=== PATIENT | female | born 1985 | race African-American/Black ===

== ENCOUNTER → 2021-05-16 12:20 | Outpatient (CLI) | payer OTHER, MEDICAID, SELFPAY ==
--- NOTE | 2021-05-16 12:22 | DI.US.S_ITS ---
PROCEDURE: US OB <= 14 WK FETUS ADD GEST INDICATIONS: INITIAL DATING VIABILITY OUTSIDE/PRIOR DATING DATA: Last menstrual period (LMP): February 14, 2021 . LMP-based estimated date of delivery (GLADIS): November 21, 2021 . First dating scan (date and location): [facility]; May 16, 2021 . Estimated date of delivery (GLADIS) from first dating scan: November 21, 2021 . TECHNIQUE: Real-time scanning was performed of the fetuses and maternal pelvic organs, with image documentation. Endovaginal scanning: Performed for better visualization of the fetuses and maternal adnexal structures. COMPARISON: None. FINDINGS: General: An intrauterine diamniotic dichorionic twin is present, as evidenced by separate placental sites and/or intervening membrane thickness of greater than 2 mm at this early gestational age. Embryo A: Twin [place]-rump length measures 6.5 cm, compatible with a 12 week, 6 day gestation Heart rate: 152 beats per minute. Placenta position: Anterior, possibly marginal. Embryo B: Twin [place]-rump length measures 6.8 cm, compatible with a 13 week gestation. Heart rate: 155 beats per minute. Placenta position: Posterior. Measurement variability in dating: +/- 4 weeks by LMP, +/- 7 days by mean sac diameter (use before 6 weeks gestation if crown-rump length unable to be measured), +/- 5 days by crown-rump length (up to 8 weeks 6 days gestation), +/- 7 days by crown-rump length (up to 13 weeks 6 days gestation). Maternal organs: Ovaries are not well demonstrated . The cervical length measures 5.3 cm. Ovoid, hypoechoic lesion in the anterior uterus, measuring 2 x 1.7 x 2.32 cm, compatible with a fibroid. A 1.1 x 0.8 x 1.2 cm echogenic focus is seen near the margin of the anterior placenta, which is nonspecific but may reflect a small hemorrhage. IMPRESSION: 1. Single live intrauterine gestation as detailed above. 2. Anterior position of placenta A, partially marginal with small focus of hemorrhage. Dictated by: Arnol Chilel M.D. on 05/16/2021 at 15:02 Approved by: Arnol Chilel M.D. on 05/16/2021 at 15:14
[2021-05-16 14:33] LABS: Add Manual Diff / Slide Review NO; Basophils Absolute Auto 0 /uL (0-100); Basophils Percent Auto 0.6 % (0-2); Eosinophils Absolute Auto 100 /uL (0-450); Eosinophils Percent Auto 1.6 % (2-4); Hematocrit 41.6 % (36-46); Hemoglobin 14.2 g/dL (12.0-16.0); Lymphocytes Absolute Auto 1500 /uL (1100-4500); Lymphocytes Percent Auto 23.6 % (25-40); Mean Corpuscular HGB Conc 34.2 % (30-36); Mean Corpuscular Volume 87.9 fL (80-100); Monocytes Absolute Auto 700 /uL (0-900); Monocytes Percent Auto 10.8 % (3-14); Neutrophils Absolute Auto 3900 /uL (1500-7000); Neutrophils Percent Auto 63.4 % (50-75); Platelet Count 300 X10^3/uL (150-400); Red Blood Cell Count 4.73 X10^6/uL (4.0-5.2); Red Cell Distribution Width 13.8 % (11.6-14.8); White Blood Cell Count 6.2 X10^3/uL (4.5-11.0)
[2021-05-16 14:34] LABS: Appearance Urine UA CLEAR; Bilirubin Urine UA NEGATIVE (NEGATIVE); Color Urine UA YELLOW; Glucose Urine UA NEGATIVE (Negative); Ketones Urine UA NEGATIVE (NEGATIVE); Leukocyte Esterase Urine UA NEGATIVE (NEGATIVE); Nitrite Urine UA NEGATIVE (Negative); Occult Blood Urine UA NEGATIVE (Negative); Protein Urine UA NEGATIVE (Negative); Specific Gravity Urine UA <=1.005 (1.000-1.035); Urobilinogen Urine UA 0.2 E.U./dL (0.2)
[2021-05-16 15:30] LABS: Hepatitis B Surface Antigen NEGATIVE s/c (NEGATIVE)
[2021-05-16 15:47] LABS: HIV 1 & 2 Ab/Ag 4th Gen Combo NEGATIVE (NEGATIVE); Hep C Virus Ab w/Reflex Quant NEGATIVE s/c (NEGATIVE)
[2021-05-17 05:41] LABS: RPR Screen Non Reactive (Non Reactive)
[2021-05-17 06:05] LABS: Varicella IgG Antibody 1673 index (Immune >165)
[2021-05-28 13:42] LABS: Rubella Antibody IgG 20.2 IU/mL (>15)
== END ==
PROVIDERS: Referring Provider Obstetrics & Gynecology; Visit Provider Obstetrics & Gynecology
DX: O30.041 Twin pregnancy, dichorionic/diamniotic, first trimester (principal); Z3A.12 12 weeks gestation of pregnancy
CPT/HCPCS: 36415; 76801; 76802; 76817; 80055; 81003; 86787; 86803; 86850; 86900; 86901; 87086; 87389

== ENCOUNTER → 2021-07-13 09:12 | Outpatient (CLI) | payer OTHER, MEDICAID, SELFPAY ==
--- NOTE | 2021-07-13 09:15 | DI.US.S_ITS ---
PROCEDURE: US OB >= 14 WK FETUS ADD GEST INDICATIONS: TWIN ANATOMY OUTSIDE/PRIOR DATING DATA: Last menstrual period (LMP): 02/14/2021 LMP-based estimated date of delivery (GLADIS): 11/21/2021. First dating scan (date and location): 05/16/2021. Estimated date of delivery (GLADIS) from first dating scan: 11/21/2021. The calculations are made using the ultrasound GLADIS of 11/21/2021. TECHNIQUE: Real-time scanning was performed of the fetuses, with image documentation and biometric measurements. Endovaginal scanning: Yes COMPARISON: [facility], , OB >= 14 WEEKS FETUS, 06/13/2021, 11:43. FINDINGS: General: An intrauterine dichorionic-diamniotic twin is present, as evidenced by separate placentas, differing sexes, or an intervening membrane of greater than 2 mm. Amniotic fluid index (composite): Not obtained. Maternal cervical canal: 2.3 cm cm long, with possible early funneling of the internal cervical os which could also be related to prominent lower uterine segment contraction. FETUS A: Fetus is located on the maternal left side, and is in transverse presentation. Largest amniotic fluid pocket: 5.5 cm; normal range is 2-8 cm. Placental position is anterior , without previa. heart rate: 152 beats per minute. biometrics: Biparietal diameter: 21 weeks 5 days Head circumference: 20 weeks 5 days Abdominal circumference: 20 weeks 5 days Femur length: 20 weeks 1 day Clinically estimated gestational age: 21 weeks 2 days Composite gestational age from present scan: 20 weeks 6 days Estimated weight and percentile: 360 g, 13 percentile Anatomic survey: Neuro: Ventricles are normal at less than 10 mm. Cisterna magna is normal at 3-11 mm. Cerebellum is normal in size and morphology. Nuchal skin fold: Normal at less than 6 mm between 14 and 21 weeks gestational age. Face: Nose and lips, facial profile are normal. Spine: No evidence for spina bifida. Heart: 4 chambered heart is present, with normal ventricular outflow tracts. Diaphragm: Diaphragm is intact. Stomach: Left-sided stomach is present. Kidneys: No hydronephrosis. Normal ranges are less than 5 mm in 2nd trimester, less than 7 mm in 3rd trimester. Cord: 3 vessel cord has orthotopic insertion. Placental cord insertion site not well seen. Bladder: Normal in size. Extremities: All 4 extremities are visualized. FETUS B: Fetus is located on the maternal right side, and is in transverse presentation. Largest amniotic fluid pocket: 4.5 cm; normal range is 2-8 cm. Placental position is posterior , without previa. heart rate: 150 beats per minute. biometrics: Biparietal diameter: 20 weeks 6 days Head circumference: 20 weeks 3 days Abdominal circumference: 21 weeks 6 days Femur length: 20 weeks 6 days Clinically estimated gestational age: 21 weeks 2 days Composite gestational age from present scan: 21 weeks 0 days Estimated weight and percentile: 411 g, 43rd percentile Anatomic survey: Neuro: Ventricles are normal at less than 10 mm. Cisterna magna is normal at 3-11 mm. Cerebellum is normal in size and morphology. Nuchal skin fold: Normal at less than 6 mm between 14 and 21 weeks gestational age. Face: Nose and lips, facial profile are normal. Spine: No evidence for spina bifida. Heart: 4 chambered heart is present, and RVOT is not well seen. Normal LVOT.. Diaphragm: Diaphragm is intact. Stomach: Left-sided stomach is present. Kidneys: No hydronephrosis. Normal ranges are less than 5 mm in 2nd trimester, less than 7 mm in 3rd trimester. Cord: 3 vessel cord has orthotopic insertion. Bladder: Normal in size. Extremities: All 4 extremities are visualized. IMPRESSION: 1. Twin living diamniotic dichorionic redemonstrated and interval growth is lower limits for fetus A at the 13th percentile and normal for fetus B at the 43rd percentile for age. 2. Placental cord insertion site not well visualize for each fetus and the RVOT is not well visualized for fetus B. Anatomic survey otherwise is normal. Follow-up recommended. 3. The cervix is slightly shortened and there may be early funneling of the internal cervical os versus artifact by uterine contraction. Attention on follow-up is recommended. Dr. Hines given results by the cash posting representative at 2:00 p.m. 07/13/2021. We strive to produce accurate, complete, and clear reports of imaging services. To assist us in improving patient care, this report was composed using standard report templates and voice recognition software. Therefore, it may contain abnormal punctuation, insertions and/or omissions. Occasional wrong-word or sound-alike substitutions may occur. Though we review the report and make efforts to correct it, we do recommend that the report be read carefully in proper context to recognize any text inaccuracies. Dictated by: Momo HUANG Interpreted: Clarita Crockett MD on 07/13/2021 at 14:36 Transcribed by: SOLEDAD on 07/13/2021 at 14:46 Approved by: Clarita Crockett M.D. on 07/13/2021 at 17:01
== END ==
PROVIDERS: Referring Provider Obstetrics & Gynecology; Visit Provider Obstetrics & Gynecology
DX: O30.042 Twin pregnancy, dichorionic/diamniotic, second trimester (principal); Z3A.20 20 weeks gestation of pregnancy
CPT/HCPCS: 76811; 76812; 76817

== ENCOUNTER → 2021-08-19 13:00 | Outpatient (CLI) | payer OTHER, MEDICAID, SELFPAY ==
[2021-08-19 14:42] LABS: Hematocrit 31.6 % (36-46); Hemoglobin 10.5 g/dL (12.0-16.0)
[2021-08-19 15:13] LABS: GTT (PREG) 1 Hour PP 50gm Dose 101 mg/dL (76-139)
== END ==
PROVIDERS: Referring Provider Obstetrics & Gynecology; Visit Provider Obstetrics & Gynecology
DX: Z34.82 Encounter for supervision of other normal pregnancy, second trimester (principal); Z3A.25 25 weeks gestation of pregnancy
CPT/HCPCS: 36415; 82950; 85014; 85018

== ENCOUNTER 2021-09-15 17:08 | Outpatient (CLI) | payer OTHER, MEDICAID, SELFPAY | END 2021-09-15 18:30 | disposition home or self-care (01) | LOC: OB 09-21 16:28 | PROVIDERS: Referring Provider Obstetrics & Gynecology; Visit Provider Obstetrics & Gynecology | DX: O30.003 Twin pregnancy, unspecified number of placenta and unspecified number of amniotic sacs, third trimester (principal); Z3A.30 30 weeks gestation of pregnancy | CPT/HCPCS: 59025; G0378; G0379 ==

== ENCOUNTER 2021-09-20 15:37 | Observation (INO) | payer OTHER, MEDICAID, SELFPAY ==
--- NOTE | 2021-09-20 16:53 | PM.OBHP.IH.1 ---
OB HPI Date/Time Date of admission: 09/20/21 Date Patient Seen: 09/20/21 Time Patient Seen: 16:57 History of Present Condition Chief complaint: Eval of labor GLADIS Calculator Estimated Delivery Date Method Current WG Current Estimate 11/21/21 LMP (Certain) 31w 1d Other Estimates 11/22/21 Ultrasound #1 31w 0d # 2 Estimated Gestational Age (weeks): 31+1 : 7 Para: 3 care: good care, initiated at week # (15), number of visits (8) and pounds weight gain (33) Dating criteria OB: LMP confirmed by 2nd trimester US Ultrasounds: normal mid trimester US Obstetrical complications: other (Twins) Medical complications OB: psychiatric (Anxiety and depression) Preadmission Labs Last OB Lab Results: Blood Type O Positive 05/16/21 13:49 05/16/21 Antibody Screen Negative 05/16/21 13:49 05/16/21 Hematocrit 31.6 % (36-46) L 08/19/21 14:16 08/19/21 Hemoglobin 10.5 g/dL (12.0-16.0) L 08/19/21 14:16 08/19/21 Hepatitis B Surface Antigen Negative s/c (NEGATIVE) 05/16/21 13:49 05/16/21 Hepatitis C Antibody Negative s/c (NEGATIVE) 05/16/21 13:49 05/16/21 Rubella Antibody 20.2 IU/mL (>15) 05/16/21 13:49 05/16/21 Varicella-Zoster IgG Antibody 1673 index (Immune >165) 05/16/21 13:49 05/16/21 Glucose 1 Hour 101 mg/dL (76-139) 08/19/21 14:16 08/19/21 -: Chlamydia screen: negative (06/05), Gonorrhea screen: negative (06/05) and Urine: negative -: PAP smear: Normal (06/05) Genetic Screens: Cell-free DNA: Normal (at least one male) and Alpha-fetoprotein: Normal External Labs -: Urine: negative Prior (ies) Past Pregnancies Del. Date GA/Weeks Labor Lgth Wt Sex Route Outcome Anesthesia Place Delv Breastfeed Preg Comp Name 09/08/03 41.4 8 6 lb 8 oz [facility] 07/16/05 spontaneous 12/01/06 40 4 6 lb [facility] Is[facility] 07/16/07 11 spontaneous 12/14/09 10 elective 01/07/11 40 6 6 lb 2 oz Female vaginal live - [facility], mixed feeding none [place] Delivery Date: 09/08/03 Last Updated by: Kiersten Lyles R.N. States she needed O2 during labor. Meconium aspiration, close monitoring & longer stay, but no issues. PPD issues, persistent but good family support. Delivery Date: 07/16/05 Last Updated by: Kiersten Lyles R.N. Completed on its own. Delivery Date: 12/01/06 Last Updated by: Kiersten Lyles R.N. SROM without contractions, then AROM. Fast labor after AROM. Delivery Date: 07/16/07 Last Updated by: Kiersten Lyles R.N. D & C to complete. Delivery Date: 12/14/09 Last Updated by: Kiersten Lyles R.N. D&C Delivery Date: 01/07/11 Last Updated by: Kiersten Lyles R.N. PPD was difficult. Did not seek support/help, just kept going. Evaluation Evaluation Baseline heart rate: 135 Variability: Moderate (11-25) monitor accelerations: Present Monitor Decelerations: Absent Uterine Contraction Intensity: Mild (irritability) Status: Category l Dilation (cm): 3 Effacement (%): 85 station: 0 Position of cervix: mid Consistency: soft PFSH Medical History (Updated 08/14/21 @ 13:02 by Aaliyah Hines MD) Anemia Anxiety (~2001) Asthma (~2001) Borderline diabetes Depression (~2001) Encounter for IUD removal (~2018) Former smoker Gallstones (~2012) Left hand fracture Neuropathy (~2014) depression Sciatica (~2014) Family History (Updated 05/23/21 @ 12:52 by Kiersten Lyles RN) Mother Hypertension Placenta abruptio Adopted Bone cancer Father Family history unknown Grandmother Family history unknown Grandfather Family history unknown Social History marital status: unmarried,living together number of children: 3 household members: significant other lives independently: Yes caregiver/support person: No pets and animals: Yes (1 dog, 1 cat: aware.) education level: high school (GED) occupational status: employed (Works remotely: mental health specialist.) current occupational exposures/hazards: Yes (States lots of cleaning products in work office environment.) special david needs: No seatbelt use: always do you feel safe at home: Yes Smoking Status: Former smoker (Was still vaping until confirmation, then quit. ) Tobacco: How many years used: 15 (1 ppd. ) second hand exposure: No alcohol intake: never (Quit a couple years ago. ) substance use type: marijuana (Smoking cannabis, she was still smoking early but has now quit as of last week. Discussed risk, also w BF.) well-balanced diet: daily or most days daily servings fruits/ve-4 (8 total) caffeine: Yes (4 oz / day) Type(s) of exercise: walking (not as often as I would like) and normal ROM and activity frequency: does not exercise Meds Home Medications and Allergies Home Medications Medication Instructions Recorded Confirmed Type prenat.vits,yuan,[id number] 1 tab PO DAILY 05/23/21 09/20/21 History sertraline 50 mg tablet 50 mg PO DAILY #30 tab 06/13/21 09/20/21 Rx progesterone micronized 200 mg 200 mg PO DAILY #30 cap 07/13/21 09/20/21 Rx capsule (Prometrium) nifedipine 30 mg tablet,extended 30 mg PO DAILY #60 tab 09/15/21 09/20/21 Rx release Allergies Allergy/AdvReac Type Severity Reaction Status Date / Time No Known Drug Allergies Allergy Verified 09/20/21 14:50 OB Exam Narrative Exam Narrative: Generally: Patient lying in bed, no acute distress Lungs: Clear to auscultation bilaterally Cardiovascular: Regular rate and rhythm Fundal height: 37 cm Estimated weight: A: 3#9oz, B 3#14oz U/S: Vertex/Transverse, no tension on membrane Ext: tr edema, 1+ DTR Assessment and Plan Assessment and Plan Assessment and Plan narrative: Assessment: 35-year-old 7 para 3 at 31-,1/7 weeks gestation with dichorionic diamniotic twins labor Anxiety and depression Plan: Transfer to , Dr. Villalta accepting physician Betamethasone 12 mg IM Covid test GBS swab Nifedipine 10mg now Increase Sertraline to 75mg/day Time Spent with Patient Total time spent with greater than 50% in coordination of care (as documented) at patient's floor/unit and/or counseling patient:: 25 - 35 minutes
[2021-09-20 17:30] VITALS: BP 113/56
[2021-09-20] MEDS: LACTATED RINGERS 1,000 ML 100 ML IV (17:30)
[2021-09-20 17:31] LABS: COVID19 -Nasal RAPID Negative (Negative)
[2021-09-20] MEDS: BETAMETHASONE 30 MG/5 ML MDV 12 MG IM (17:58)
[2021-09-20] MEDS: NIFEdipine 10 MG CAPSULE PO (17:58)
[2021-09-20 18:16] LABS: Add Manual Diff / Slide Review NO; Basophils Absolute Auto 0 /uL (0-100); Basophils Percent Auto 0.6 % (0-2); Eosinophils Absolute Auto 300 /uL (0-450); Eosinophils Percent Auto 3.6 % (2-4); Hematocrit 33.2 % (36-46); Hemoglobin 10.9 g/dL (12.0-16.0); Lymphocytes Absolute Auto 1400 /uL (1100-4500); Lymphocytes Percent Auto 20.3 % (25-40); Mean Corpuscular HGB Conc 32.9 % (30-36); Mean Corpuscular Hemoglobin 26.5 PG (26-34); Mean Corpuscular Volume 80.6 fL (80-100); Monocytes Absolute Auto 700 /uL (0-900); Monocytes Percent Auto 10.2 % (3-14); Neutrophils Absolute Auto 4700 /uL (1500-7000); Neutrophils Percent Auto 65.3 % (50-75); Platelet Count 285 X10^3/uL (150-400); Red Blood Cell Count 4.12 X10^6/uL (4.0-5.2); Red Cell Distribution Width 14.1 % (11.6-14.8); White Blood Cell Count 7.2 X10^3/uL (4.5-11.0)
[2021-09-20 19:44] LABS: Appearance Urine UA CLEAR; Bilirubin Urine UA NEGATIVE (NEGATIVE); Color Urine UA YELLOW; Glucose Urine UA NEGATIVE (Negative); Ketones Urine UA 2+ (NEGATIVE); Leukocyte Esterase Urine UA NEGATIVE (NEGATIVE); Nitrite Urine UA NEGATIVE (Negative); Occult Blood Urine UA NEGATIVE (Negative); Protein Urine UA TRACE (Negative); Urobilinogen Urine UA 0.2 E.U./dL (0.2)
[2021-09-20 19:50] LABS: pH Urine UA 5.5 (4.5-8.0)
[2021-09-20 19:58] LABS: Bacteria Urine None Seen; Culture Indicated Urine Cult Not Indicated; RBC Urine None Seen (0-5/HPF); Squamous Epithelial Cell Urine None Seen (0-5/HPF); WBC Urine None Seen (0-5/HPF)
[2021-09-20 23:46] LABS: Strep Grp B PCR NEG for Grp B Strep
== END 2021-09-20 19:20 | disposition short-term general hospital (02) ==
PROVIDERS: Admitting Provider Obstetrics & Gynecology; Referring Provider Obstetrics & Gynecology; Visit Provider Obstetrics & Gynecology
DX: O60.03 Preterm labor without delivery, third trimester (principal); O99.343 Other mental disorders complicating pregnancy, third trimester; F41.9 Anxiety disorder, unspecified; F32.9 Major depressive disorder, single episode, unspecified; Z3A.31 31 weeks gestation of pregnancy; Z20.822 Contact with and (suspected) exposure to COVID-19
CPT/HCPCS: 36415; 59025; 59050; 81001; 85025; 86850; 86900; 86901; 87081; 87635; 87653; 96360; 96372; C9803; G0378; G0379; J0702